=== PATIENT | female | born 1975 | race Caucasian/White ===

== ENCOUNTER → 2018-09-12 | Outpatient (CLI) | payer OTHER ==
--- NOTE | 2018-09-27 13:05 | EEG ---
DATE OF SERVICE: 09/12/2018 EEG NUMBER: [id number] OBJECTIVE: This is a 42-year-old female patient with history of seizure or seizure-like episodes described as staring spell. EEG was requested to evaluate seizure activity. METHODS: Twenty electrodes were applied according to the international 10-20 electrode placement system. EKG monitoring, hyperventilation, intermittent photic stimulation, monopolar and bipolar montages were routinely utilized. The record was obtained on a digital system with video monitoring. This is a long-term video EEG study with total video monitoring and the EEG recording time of 27 hours and 9 minutes, from, 09/12/2018-09/13/2018. FINDINGS: 1. Background: The patient was recorded in the awake, drowsy, and sleep states. The overall background amplitude is 10-30 microvolts. The posterior dominant rhythm of 8-10 Hz was observed. 2. Abnormalities: No specific epileptiform discharge or electrographic seizure was seen. No focal or diffuse slowing. 3. Activation: Hyperventilation was performed with good efforts and normal response. Intermittent photic stimulation was performed with photic driving. No specific epileptiform discharge or electrographic seizure induced by hyperventilation or intermittent photic stimulation. IMPRESSION: This is a long-term video EEG study with total video monitoring and EEG recording time of 27 hours and 9 minutes, from 09/12/2018 to 09/13/2018. This long-term video EEG study is a normal study for the awake, drowsy, and sleep states. No focal, lateralizing, specific epileptiform discharge or electrographic seizure is seen. NALLELY ALBRIGHT MD DR: [email or web address]/[email or web address] JOB#: [id number] / [id number] YANNI
== END | disposition home or self-care (01) ==
LOC: SLPLAB 05:48
PROVIDERS: ATTEND Psychiatry & Neurology Neurology
DX: R40.4 Transient alteration of awareness (principal)
CPT/HCPCS: 95951

== ENCOUNTER → 2019-01-01 | Outpatient (CLI) | payer OTHER ==
--- NOTE | 2019-01-02 19:50 | SLEEP ---
DATE OF STUDY: 01/01/2019 HOME POLYSOMNOGRAM REPORT OBJECTIVE: The patient is a 43-year-old female with possible sleep apnea, excessive somnolence. Height 65 inches, weight 135 pounds, body mass index 22.5. [place] sleep score 11. Respiratory monitoring demonstrates a total of 11 events for an apnea-hypopnea index of 1.5 events per hour of sleep. Minimum oxygen saturation is 90%. No significant cardiac arrhythmias are seen. IMPRESSION: Normal home sleep study, showing no evidence of sleep apnea or oxygen desaturation. Thank you for letting us help with the patient's care. CHARLA THOMAS MD DR: ROSEY/hugo JOB#: [id number] / [id number] MONICA Salazar FERILYN MD
== END | disposition home or self-care (01) ==
LOC: RT 07:55
PROVIDERS: ATTEND Psychiatry & Neurology Neurology
DX: G47.33 Obstructive sleep apnea (adult) (pediatric) (principal)
CPT/HCPCS: G0399